=== PATIENT | female | born 1985 | race Hispanic/Latino ===

== ENCOUNTER 2021-03-22 00:48 | Emergency (ER) | payer BC ==
[~2021-03-22] VITALS: Ht 165.1 cm; Wt 149.7 kg
[2021-03-22] MEDS ORDERED: MELO7.5T12 PO (04:50)
[2021-03-22] MEDS ORDERED: LIDOP TP (04:50)
[2021-03-22] MEDS ORDERED: CYCL10TA7 PO (04:50)
[2021-03-22] MEDS ORDERED: ORPHENADRINE CITRATE 30 MG/ML ML IM ONE (05:00)
[2021-03-22] MEDS ORDERED: KETOROLAC 60 MG VIAL (30MG/ML) IM ONE (05:00)
[2021-03-22] MEDS ORDERED: KETOROLAC 60 MG VIAL (30MG/ML) ONE (05:24)
[2021-03-22] MEDS ORDERED: ORPHENADRINE CITRATE 30 MG/ML ML ONE (05:24)
[2021-03-22 05:47] VITALS: BP 119/70
== END 2021-03-22 05:45 | disposition home or self-care (01) ==
LOC: EDH 00:48
DX: S86.912A Strain of unspecified muscle(s) and tendon(s) at lower leg level, left leg, initial encounter (principal); Z79.1 Long term (current) use of non-steroidal anti-inflammatories (NSAID); X58.XXXA Exposure to other specified factors, initial encounter; Y93.89 Activity, other specified; Y92.89 Other specified places as the place of occurrence of the external cause; Y99.8 Other external cause status
CPT/HCPCS: 73562; 96372 ×2; 99284; J1885; J2360